=== PATIENT | female | born 1935 | race Caucasian/White ===

== ENCOUNTER → 2016-11-08 | Outpatient (CLI) | payer OTHER | END | disposition home or self-care (01) | LOC: PCVCIMAG 13:15 | PROVIDERS: ATTEND Nuclear Medicine Nuclear Cardiology | DX: I70.213 Atherosclerosis of native arteries of extremities with intermittent claudication, bilateral legs (principal); I25.10 Atherosclerotic heart disease of native coronary artery without angina pectoris; I77.9 Disorder of arteries and arterioles, unspecified; I10 Essential (primary) hypertension; E78.00 Pure hypercholesterolemia, unspecified; K21.9 Gastro-esophageal reflux disease without esophagitis; E11.9 Type 2 diabetes mellitus without complications | CPT/HCPCS: 93925; G0463 ==

== ENCOUNTER → 2018-02-19 | Outpatient (CLI) | payer OTHER | END | disposition home or self-care (01) | LOC: PCVCIMAG 16:39 | DX: I73.9 Peripheral vascular disease, unspecified (principal); E11.9 Type 2 diabetes mellitus without complications | CPT/HCPCS: 93923; 93925 ==

== ENCOUNTER → 2018-09-04 | Outpatient (CLI) | payer OTHER ==
--- NOTE | 2018-09-04 14:24 | PCVCIMAG ---
EXAM: BILATERAL CAROTID DUPLEX INDICATION: Carotid Occlusive Disease. FINDINGS: Doppler Measurements (centimeters per second): RIGHT: Peak CCA-70, Peak ECA-97, Diastolic ICA-15, Peak ICA-74, ICA/CCA Ratio-1.1. LEFT: Peak CCA-72, Peak ECA-107, Diastolic ICA-17, Peak ICA-103, ICA/CCA Ratio-1.4. RIGHT CAROTID: The carotid bulb has moderate plaque. The proximal internal carotid artery shows <40% stenosis. The common carotid artery shows no significant stenosis. The external carotid artery shows no significant stenosis. LEFT CAROTID: The carotid bulb has moderate plaque. The proximal internal carotid artery shows <40% stenosis. The common carotid artery shows no significant stenosis. The external carotid artery shows no significant stenosis. Antegrade flow in both vertebral arteries. IMPRESSION: <40% stenosis of the right internal carotid artery with moderate plaque. <40% stenosis of the left internal carotid artery with moderate plaque. No change since April 2017. LOC:[id number]
--- NOTE | 2018-09-04 15:30 | PCVCIMAG ---
EXAM: BILATERAL LOWER EXTREMITY ARTERIAL DUPLEX INDICATION: Peripheral Arterial Disease. Leg pain. FINDINGS: Right Leg: Satisfactory arterial waveforms throughout the common/profunda/superficial femoral, popliteal, anterior tibial, peroneal, and posterior tibial arteries. No flow limiting stenosis seen. Previous superficial femoral artery stent maintaining satisfactory patency. Left Leg: Common femoral and femoral arteries are patent. Increased systolic velocity 282 cm/s distal superficial femoral artery at the distal margin of a prior stent consistent with 50-60% restenosis. Popliteal artery is patent. The anterior tibial and peroneal arteries are patent. The posterior tibial artery is diminutive in size distally as seen on prior angiogram. IMPRESSION: No flow limiting stenosis in the right lower extremity. Previous right superficial femoral artery stent maintaining satisfactory patency. 50-60% restenosis distal left superficial femoral artery within prior stent is unchanged compared to February 2018 study. LOC:[id number]
== END | disposition home or self-care (01) ==
LOC: PCVCIMAG 13:31
PROVIDERS: ATTEND Nuclear Medicine Nuclear Cardiology
DX: I65.23 Occlusion and stenosis of bilateral carotid arteries (principal); I73.9 Peripheral vascular disease, unspecified; E78.00 Pure hypercholesterolemia, unspecified; E11.9 Type 2 diabetes mellitus without complications
CPT/HCPCS: 93880; 93925

== ENCOUNTER → 2019-03-10 | Outpatient (CLI) | payer OTHER ==
--- NOTE | 2019-03-10 09:11 | PCVCIMAG ---
EXAM: NONINVASIVE ARTERIAL EXAMINATION OF BOTH LOWER EXTREMITIES INCLUDING PRE AND POST EXERCISE PRESSURE MEASUREMENTS AND DOPPLER WAVEFORMS INDICATION: Peripheral Arterial Disease. Leg pain. FINDINGS: Right Brachial: 120 mm Hg. Right Dorsalis Pedis: 108 mm Hg. Right Posterior Tibial: 110 mm Hg. Right PORFIRIO = 0.92. Left Brachial: 120 mm Hg. Left Dorsalis Pedis: 130 mm Hg. Left Posterior Tibial: 106 mm Hg. Left PORFIRIO = 1.08. Post Exercise: Left Brachial 128 mm Hg. Right Posterior Tibial: 97 mm Hg. Left Dorsalis Pedis: 117 mm Hg. Right PORFIRIO = 0.76. Left PORFIRIO = 0.91. IMPRESSION: No resting ischemia in the right lower extremity. Mild exercise induced ischemia in the right lower extremity. No resting ischemia in the left lower extremity. No exercise induced ischemia in the left lower extremity. LOC:[id number]
--- NOTE | 2019-03-10 09:17 | PCVCIMAG ---
EXAM: BILATERAL LOWER EXTREMITY ARTERIAL DUPLEX INDICATION: Peripheral Arterial Disease. Leg pain. FINDINGS: Right Leg: Satisfactory arterial waveforms throughout the common/profunda/superficial femoral, popliteal, anterior tibial, peroneal, and posterior tibial arteries. No flow limiting stenosis seen. Previous mid/distal superficial femoral artery stent maintaining satisfactory patency. Left Leg: Common femoral profunda femoral arteries are patent. Increased systolic velocity distal superficial femoral artery of 283 cm/s consistent with 60% stenosis at the distal margin of the prior stent. Popliteal artery is patent. The anterior tibial, peroneal, and posterior tibial arteries are patent. IMPRESSION: No flow limiting stenosis in the right lower extremity. Previous right superficial femoral artery stent maintaining satisfactory patency. 60% restenosis distal left superficial femoral artery at the distal margin of a prior stent is unchanged compared to August 2018 study and February 2018 study. LOC:[id number]
== END | disposition home or self-care (01) ==
LOC: PCVCIMAG 08:13
PROVIDERS: ATTEND Nuclear Medicine Nuclear Cardiology
DX: E11.51 Type 2 diabetes mellitus with diabetic peripheral angiopathy without gangrene (principal); Z88.5 Allergy status to narcotic agent
CPT/HCPCS: 93924; 93925